=== PATIENT | female | born 1965 | race Caucasian/White ===

== ENCOUNTER → 2019-08-13 | Outpatient (CLI) | payer MEDICAID ==
--- NOTE | 2019-08-13 14:34 | Diagnostic Imaging Report ---
INDICATION: Left shoulder pain. TIME OF EXAM: 02:19 p.m. FINDINGS: Three views of the left shoulder were obtained. Glenohumeral and acromioclavicular alignment are normal. Acromiohumeral space is normal. There are degenerative changes with some spurring at the humeral head and neck junction. No fractures are seen. IMPRESSION: Degenerative changes. No acute bony abnormality is detected. Dictated by: Dictated on workstation # [id number]
== END ==
LOC: RAD FS 14:09
PROVIDERS: ATTEND Nurse Practitioner
DX: M19.012 Primary osteoarthritis, left shoulder (principal)
CPT/HCPCS: 73030

== ENCOUNTER → 2019-10-01 | Outpatient (CLI) | payer MEDICAID ==
--- NOTE | 2019-10-01 10:54 | Diagnostic Imaging Report ---
INDICATION: History of osteoarthritis. COMPARISON: 08/13/2019. FINDINGS: Three views of the left shoulder were obtained. There is no fracture, dislocation, or other acute bony abnormality identified. The soft tissues appear unremarkable. No radiopaque foreign bodies identified. The visualized portions of the left lung are clear. IMPRESSION: No acute fractures or dislocations of the left shoulder. Dictated by: Dictated on workstation # [id number]
== END ==
LOC: RAD FS 10:08
PROVIDERS: ATTEND Nurse Practitioner
DX: M19.012 Primary osteoarthritis, left shoulder (principal)
CPT/HCPCS: 73030

== ENCOUNTER 2019-10-07 12:39 | Outpatient (RCR) | payer MEDICAID ==
[2019-10-07 13:27] LABS: BASOPHILS % (AUTO) 1 % (0-10); EOSINOPHILS # (AUTO) 0.1 10^3/uL (0.0-0.3); EOSINOPHILS % (AUTO) 2 % (0-10); HEMATOCRIT 31 % (35-52); HEMOGLOBIN 9.7 G/DL (11.5-16.0); LYMPHOCYTES # (AUTO) 1.3 X 10^3 (1.0-4.0); LYMPHOCYTES % (AUTO) 26 % (12-44); MEAN CORPUSCULAR HEMOGLOBIN 26 PG (25-34); MEAN CORPUSCULAR HGB CONC 31 G/DL (32-36); MEAN CORPUSCULAR VOLUME 84 FL (80-99); MEAN PLATELET VOLUME 10.9 FL (7.4-10.4); MONOCYTES # (AUTO) 0.6 X 10^3 (0.0-1.0); MONOCYTES % (AUTO) 12 % (0-12); NEUTROPHILS % (AUTO) 60 % (42-75); PLATELET COUNT 109 10^3/uL (130-400)
[2019-10-07 13:45] LABS: ALANINE AMINOTRANSFERASE 33 U/L (0-55); ALBUMIN 3.7 GM/DL (3.2-4.5); ALKALINE PHOSPHATASE 79 U/L (40-136); BILIRUBIN,TOTAL 1.4 MG/DL (0.1-1.0); BUN/CREATININE RATIO 23; CALCIUM 8.8 MG/DL (8.5-10.1); CARBON DIOXIDE 21 MMOL/L (21-32); CHLORIDE 103 MMOL/L (98-107); CREATININE SERUM 0.79 MG/DL (0.60-1.30); GFR ESTIMATED > 60; GLUCOSE 124 MG/DL (70-105); POTASSIUM 3.6 MMOL/L (3.6-5.0); SODIUM 135 MMOL/L (135-145)
[2019-10-21] MEDS ORDERED: LISI10TA2 PO (15:46)
[2019-10-21] MEDS ORDERED: OMEP40CA27 PO (15:46)
[2019-10-21] MEDS ORDERED: METF-399 PO (15:46)
[2019-10-21] MEDS ORDERED: PAMI30VI8 SQ (15:46)
[2019-10-21] MEDS ORDERED: BUME2TAB7 PO (15:46)
[2019-10-21] MEDS ORDERED: RT-ALBUINH IH (15:46)
[2019-10-21] MEDS ORDERED: ARIP2TAB20 PO (15:46)
[2019-10-21] MEDS ORDERED: ACHD5005 PO (15:46)
[2019-10-21] MEDS ORDERED: GABA-486 PO (15:46)
[2019-10-21] MEDS ORDERED: TRAZ150T72 PO (15:46)
[2019-10-21] MEDS ORDERED: FAMO20TA3 PO (15:46)
[2019-10-21] MEDS ORDERED: EZET1TAB69 PO (15:46)
[2019-10-21] MEDS ORDERED: EXEN2PEN SQ (15:46)
[2019-10-21] MEDS ORDERED: ALPR0.5T7 PO (15:46)
[2019-10-21] MEDS ORDERED: CANA300T PO (15:46)
[2019-10-21] MEDS ORDERED: CYCL10TA9 PO (15:46)
[2019-10-21] MEDS ORDERED: POTA10TA36 PO (15:46)
[2019-11-16] MEDS ORDERED: FERR-84 PO (12:34)
[2019-11-16] MEDS ORDERED: POLY17PO6 PO (12:34)
[2019-11-16] MEDS ORDERED: DOCU100T2 PO (12:34)
[2019-11-16] MEDS ORDERED: SODI30SP2 NS (12:34)
[2019-11-16] MEDS ORDERED: PEG15DRO9 OP (12:34)
[2019-11-18] MEDS ORDERED: CEFD300C3 PO (10:40)
[2019-11-18] MEDS ORDERED: BTH10T PO (10:40)
== END 2020-01-05 | disposition home or self-care (01) ==
LOC: ONC 12:39
PROVIDERS: ATTEND Internal Medicine Hematology & Oncology
DX: D50.0 Iron deficiency anemia secondary to blood loss (chronic) (principal); E66.01 Morbid (severe) obesity due to excess calories; E11.9 Type 2 diabetes mellitus without complications; D69.6 Thrombocytopenia, unspecified; K76.0 Fatty (change of) liver, not elsewhere classified; E78.5 Hyperlipidemia, unspecified; I10 Essential (primary) hypertension; Z79.899 Other long term (current) drug therapy
CPT/HCPCS: 80053; 82728; 83540; 84443; 85025; G0463; 99214

== ENCOUNTER 2019-10-21 05:50 | Outpatient (RCR) | payer MEDICAID ==
[~2019-10-21] VITALS: Ht 154.9 cm; Wt 98.6 kg
[2019-10-21] MEDS ORDERED: EZET1TAB69 PO (15:46)
[2019-10-21] MEDS ORDERED: ALPR0.5T7 PO (15:46)
[2019-10-21] MEDS ORDERED: FAMO20TA3 PO (15:46)
[2019-10-21] MEDS ORDERED: GABA-486 PO (15:46)
[2019-10-21] MEDS ORDERED: EXEN2PEN SQ (15:46)
[2019-10-21] MEDS ORDERED: PAMI30VI8 SQ (15:46)
[2019-10-21] MEDS ORDERED: METF-399 PO (15:46)
[2019-10-21] MEDS ORDERED: CANA300T PO (15:46)
[2019-10-21] MEDS ORDERED: ARIP2TAB20 PO (15:46)
[2019-10-21] MEDS ORDERED: OMEP40CA27 PO (15:46)
[2019-10-21] MEDS ORDERED: RT-ALBUINH IH (15:46)
[2019-10-21] MEDS ORDERED: POTA10TA36 PO (15:46)
[2019-10-21] MEDS ORDERED: BUME2TAB7 PO (15:46)
[2019-10-21] MEDS ORDERED: LISI10TA2 PO (15:46)
[2019-10-21] MEDS ORDERED: CYCL10TA9 PO (15:46)
[2019-10-21] MEDS ORDERED: TRAZ150T72 PO (15:46)
[2019-10-21] MEDS ORDERED: ACHD5005 PO (15:46)
== END 2019-10-23 10:05 | disposition home or self-care (01) ==
LOC: PREOP 05:50 → EDSTATUS 12:15 → PREOP 10-23 10:05
PROVIDERS: ATTEND Surgery
DX: Z01.818 Encounter for other preprocedural examination (principal)

== ENCOUNTER 2019-10-28 10:56 | Day surgery (SDC) | payer MEDICAID ==
[~2019-10-28] VITALS: Ht 154.9 cm; Wt 98.6 kg
[~2019-10-28 10:56] MED LIST: ACHD5005 PO; ALPR0.5T7 PO; ARIP2TAB20 PO; BUME2TAB7 PO; CANA300T PO; CYCL10TA9 PO; EXEN2PEN SQ; EZET1TAB69 PO; FAMO20TA3 PO; GABA-486 PO; LISI10TA2 PO; METF-399 PO; OMEP40CA27 PO; PAMI30VI8 SQ; POTA10TA36 PO; RT-ALBUINH IH; TRAZ150T72 PO
[2019-10-28] MEDS ORDERED: LACTATED RINGERS 1,000 ML IV ONE (10:58)
[2019-10-28] MEDS ORDERED: LACTATED RINGERS 1,000 ML IV STA (11:06)
[2019-10-28 11:10] VITALS: BP 108/51
[2019-10-28] MEDS ORDERED: HURRICAINE EXT TUBE (BENZOCAINE) XX PRN (11:15)
--- NOTE | 2019-10-28 11:40 | Progress Note-Pre Operative ---
Pre-Operative Progress Note H&P Reviewed The H&P was reviewed, patient examined and no changes noted. Time Seen by Provider: 11:37 Date H&P Reviewed: Oct 28, 2019 Time H&P Reviewed: 11:37 Pre-Operative Diagnosis: Anemia, melena, Gastritis, screening colon DEBRA BRICEÑO DO Oct 28, 2019 11:40
[2019-10-28] MEDS ORDERED: PROPOFOL INJECTION 50 ML IV ONE (13:16)
[2019-10-28] MEDS ORDERED: HURRICAINE EXT TUBE (BENZOCAINE) ONE (13:41)
[2019-10-28 14:00] VITALS: BP 98/51
[2019-10-28 14:05] VITALS: BP 92/55
--- NOTE | 2019-10-28 14:09 | Anesthesia-General Post-Op ---
MAC Patient Condition Mental Status/LOC: Same as Preop Cardiovascular: Satisfactory Nausea/Vomiting: Absent Respiratory: Satisfactory Pain: Controlled Complications: Absent Post Op Complications Complications None Follow Up Care/Instructions Patient Instructions None needed. Anesthesiology Discharge Order Discharge Order Patient is doing well, no complaints, stable vital signs, no apparent adverse anesthesia problems. No complications reported per nursing. NICOLE MALDONADO CRNA Oct 28, 2019 14:09
[2019-10-28 14:10] VITALS: BP_SYST 100; BP_SYST 102; BP_DIAS 55; BP_DIAS 56
--- NOTE | 2019-10-28 14:19 | Progress Note-Post Operative ---
Post-Operative Progess Note Surgeon (s)/Crossword Puzzle Maker (s) Surgeon DEBRA BRICEÑO DO Crossword Puzzle Maker: RUBI AcostaII Pre-Operative Diagnosis Anemia, melena, Gastritis, screening colon Post-Operative Diagnosis Same plus Hiatal Hernia Colon polyps diverticula int hemorrhoids Procedure & Operative Findings Date of Procedure 10/28/19 Procedure Performed/Findings EGD with bx Colon with hot bx Anesthesia Type IV sedation by RAILROAD CARMAN Estimated Blood Loss Estimated blood loss (mL): scant Specimens/Packing Specimens Removed antral bx body of stomach x 2 GE jxn bx asc colon polyp rectal polyp DEBRA BRICEÑO DO Oct 28, 2019 14:19
--- NOTE | 2019-10-28 14:20 | Endoscopy Discharge Instruct ---
Endo Procedure/Findings Findings 1.: Hiatal Hernia, Gastritis 2.: Polyp 3.: Diverticulosis 4.: Internal Hemorrhoids Discharge Instructions - Activity: You might feel a little sleepy until tomorrow. This is due to the medicine you received to relax you. Until tomorrow, you should: NOT drive a car, operate machinery or power tools. NOT drink any alcoholic beverages. NOT make any important decisions or sign importortant papers. Do not return to work until tomorrow, unless otherwise instructed. Resume previous activities tomorrow. Diet: Start by taking liquids. If you tolerate liquids, advance to solid food. 1.: Colonscopy in 5 years, EGD in 3 years Notify Physician - If you experience excessive bleeding, unusual abdominal pain, fever, or chest pain, contact your doctor immediately. DEBRA BRICEÑO DO Oct 28, 2019 14:20
[2019-10-28 14:35] VITALS: BP 117/45
[2019-10-28 14:36] VITALS: BP 117/45
--- NOTE | 2019-10-29 04:04 | OPERATIVE REPORT ---
DATE OF SERVICE: PREOPERATIVE DIAGNOSES: Anemia, melena, colonoscopy screening. POSTOPERATIVE DIAGNOSES: Gastritis, hiatal hernia, colon polyps, diverticula, internal hemorrhoids. PROCEDURES: 1. EGD with biopsy. 2. Colonoscopy with hot biopsy. SURGEON: Sergio Mead DO. ADVERTISING REP: KEVIN Haas. ANESTHESIA: IV sedation by the CANE BURNER. SPECIMEN: Antral biopsy, body of stomach biopsy x2, GE junction biopsy, ascending colon polyp x1 and rectal polyp x1. BLOOD LOSS: Scant. FLUIDS: Per anesthesia. POSTOPERATIVE CONDITION: Stable. INDICATION FOR PROCEDURE: The patient is a 54-year-old female who has had some anemia, possibly a melena, we thought it was upper GI source and she has never had a colonoscopy, needs one for screening. DESCRIPTION OF PROCEDURE: The patient had some gastritis and hiatal hernia and then in the colon, she had two flat polyps along with a lot of diverticula and some internal hemorrhoids. PROCEDURE NOTE: After informed consent was obtained, the patient was brought to the endoscopy suite, placed in bed in left lateral decubitus position. She was administered IV sedation by the CANE BURNER who then monitored her vitals the entire time, heart rate, blood pressure and pulse ox and the scope was inserted first started with the EGD, placing scope down the mouth through the esophagus into the stomach, pushed towards the antrum, noted some gastritis, took a picture, pushed into the duodenum. Duodenum looked fine. Pulled back, did a biopsy of the antrum and then retroflexed the scope, did a biopsy from the body of stomach, looked okay, may have been an ulcer or some bleeding area, did a biopsy of this, then pulled the scope into the GE junction, did a biopsy of the GE junction, pushed the scope back into the stomach, suctioned all the air out and then pulled the scope up the esophagus and out the mouth. Switched camera, switched gloves, went down below, started the colonoscopy, pushed the scope in all the way to 150 cm, able to get all the way to cecum, took a picture of appendiceal orifice, noted the ileocecal valve and then slowly withdrew the scope insufflating to look circumferentially at the bronson looking the cecum, up the ascending colon. In the ascending colon, soft, flat polyp, I elected to do a hot biopsy of this and then continued up to the hepatic flexure, down the transverse colon, the splenic flexure, into the descending colon down in the sigmoid and finally into the rectum, saw another polyp in the rectum, did another hot biopsy of this and then retroflexed the scope in the rectal vault, saw some minimal internal hemorrhoids, took a picture throughout the descending colon and sigmoid colon, saw multiple large diverticula, took pictures of these. Scope was removed. The patient tolerated the procedure, recovered in endoscopy suite. Job ID: [id number] DocumentID: [id number] Dictated Date: 10/28/2019 16:31:20 Weaving Loom Operator Date: 10/29/2019 04:03:10 Dictated By: SERGIO MEAD DO
== END 2019-10-28 14:38 | disposition home or self-care (01) ==
LOC: ENDO 10:56
PROVIDERS: ATTEND Surgery
DX: D12.2 Benign neoplasm of ascending colon (principal); K62.1 Rectal polyp; K31.7 Polyp of stomach and duodenum; K29.50 Unspecified chronic gastritis without bleeding; K31.9 Disease of stomach and duodenum, unspecified; K44.9 Diaphragmatic hernia without obstruction or gangrene; K57.30 Diverticulosis of large intestine without perforation or abscess without bleeding; K21.9 Gastro-esophageal reflux disease without esophagitis; K64.8 Other hemorrhoids; D50.9 Iron deficiency anemia, unspecified; F17.210 Nicotine dependence, cigarettes, uncomplicated; I10 Essential (primary) hypertension; E78.5 Hyperlipidemia, unspecified; E11.9 Type 2 diabetes mellitus without complications; G40.909 Epilepsy, unspecified, not intractable, without status epilepticus; J45.909 Unspecified asthma, uncomplicated; M19.91 Primary osteoarthritis, unspecified site; F41.9 Anxiety disorder, unspecified; E66.9 Obesity, unspecified; Z68.41 Body mass index [BMI] 40.0-44.9, adult; Z87.19 Personal history of other diseases of the digestive system; Z79.84 Long term (current) use of oral hypoglycemic drugs; Z79.899 Other long term (current) drug therapy; Z88.2 Allergy status to sulfonamides
CPT/HCPCS: 82962; 88305

== ENCOUNTER 2019-11-20 16:46 | Emergency (ER) | payer MEDICAID ==
[~2019-11-20] VITALS: Ht 152.4 cm; Wt 87.0 kg
--- NOTE | 2019-11-20 17:00 | ED General ---
General Stated Complaint: SEPSIS Source of Information: Patient Exam Limitations: No Limitations History of Present Illness Date Seen by Provider: Nov 20, 2019 Time Seen by Provider: 16:55 Initial Comments 54-year-old female presents due to abnormal labs. Patient was recently hospitalized and had labs rechecked today. Patient was sent to the ER because they were concerned she might be "septic" patient was admitted for a urinary tract infection and retention. Patient states that she thinks she to allow better and feels great. Patient is found to have an elevated lactic but otherwise urine was normal, no elevated white blood cell count. Patient denies any fevers chills nausea vomiting other systemic complaints. Allergies and Home Medications Allergies Coded Allergies: sulfamethoxazole (Verified Allergy, Unknown, Nausea AND VOMITING, 10/21/19) trimethoprim (Verified Allergy, Unknown, Nausea AND VOMITING, 10/21/19) varenicline (Verified Allergy, Unknown, SUICIDE THOUGHTS, 10/21/19) Home Medications Albuterol Sulfate 1 Puff Puff, 2 PUFF IH Q4H PRN for SHORTNESS OF BREATH, (Reported) Alprazolam 0.5 Mg Tablet, 0.5 MG PO TID PRN for ANXIETY, (Reported) Aripiprazole 2 Mg Tablet, 2 MG PO DAILY PRN for MOOD, (Reported) Bethanechol Chloride 10 Mg Tablet, 10 MG PO BID Prescribed by: URBANO CORTES on 11/18/19 1040 Bumetanide 2 Mg Tablet, 2 MG PO DAILY, (Reported) Canagliflozin 300 Mg Tablet, 300 MG PO DAILY, (Reported) Cefdinir 300 Mg Capsule, 300 MG PO BID Prescribed by: URBANO CORTES on 11/18/19 1040 Cyclobenzaprine HCl 10 Mg Tablet, 10 MG PO BID PRN for MUSCLE SPASMS, (Reported) Docusate Sodium 100 Mg Tablet, 100 MG PO BID PRN for CONSTIPATION-1ST LINE, (Reported) Ezetimibe/Simvastatin 1 Each Tablet, 1 EACH PO DAILY, (Reported) Famotidine 20 Mg Tablet, 20-40 MG PO HS, (Reported) TAKES 1-2 (20MG) TAB Ferrous Sulfate 325 Mg Tablet, 325 MG PO DAILY, (Reported) Gabapentin 100 Mg Capsule, 100 MG PO TID PRN for PAIN-BREAKTHROUGH, (Reported) Hydrocodone/Acetaminophen 1 Each Tablet, 1 EACH PO TID PRN for PAIN-MODERATE (5- 7), (Reported) Lisinopril 10 Mg Tablet, 10 MG PO DAILY, (Reported) Metformin HCl 1,000 Mg Tablet, 1,000 MG PO BID, (Reported) Omeprazole 40 Mg Capsule.dr, 40 MG PO BID, (Reported) Peg 400/Hypromellose/Glycerin 15 Ml Drops, 2 DROPS OP PRN PRN for DRY EYES, (Reported) Polyethylene Glycol 3350 17 Gm Powd.pack, 17 GM PO DAILY PRN for CONSTIPATION- 2ND LINE, (Reported) Potassium Chloride 10 Meq Tab.er.prt, 10 MEQ PO DAILY, (Reported) Sodium Chloride 30 Ml [place], 2 SPRAYS NS PRN PRN for DRY NOSE, (Reported) Trazodone HCl 150 Mg Tablet, 150 MG PO HS, (Reported) Patient Home Medication List Home Medication List Reviewed: Yes Review of Systems Review of Systems Constitutional: No chills, No fever EENTM: no symptoms reported Respiratory: no symptoms reported; No cough, No short of breath Cardiovascular: no symptoms reported; No chest pain, No palpitations Gastrointestinal: no symptoms reported Genitourinary: no symptoms reported Musculoskeletal: no symptoms reported Skin: no symptoms reported Psychiatric/Neurological: No Symptoms Reported Past Tbmbrso-Mjywlq-[id number] Hx Past Med/Social Hx: Reviewed Nursing Past Med/Soc Hx Patient Social History Type Used: Cigarettes Recent Foreign Travel: No Contact w/Someone Who Travel: No Recent Hopitalizations: No Immunizations Up To Date PED Vaccines UTD: No Seasonal Allergies Seasonal Allergies: Yes Past Medical History Surgeries: Yes Gallbladder, Hysterectomy Respiratory: Yes Asthma Cardiac: No Neurological: Yes Seizure Disorder Genitourinary: No Gastrointestinal: Yes Gastroesophageal Reflux Musculoskeletal: Yes Arthritis Endocrine: Yes Diabetes, Insulin dep HEENT: Yes (no teeth) Cancer: No Psychosocial: Yes Anxiety Integumentary: No Blood Disorders: Yes (anemia) Family Medical History Heart Disease, Diabetes, Hypertension Physical Exam Vital Signs Vital Signs - First Documented 11/20/19 16:57 Temp 36.8 Pulse 107 Resp 16 B/P (MAP) 131/60 (83) Pulse Ox 97 O2 Delivery Room Air Capillary Refill : Height, Weight, BMI Height: '" Weight: lbs. oz. kg; 32.28 BMI Method: General Appearance: No Apparent Distress, WD/WN Respiratory: Lungs Clear, Normal Breath Sounds, Accessory Muscle Use Cardiovascular: Regular Rate, Rhythm, No Edema Gastrointestinal: Non Tender, Soft Back: Normal Inspection Extremity: Normal Capillary Refill, Normal Inspection Neurologic/Psychiatric: Alert, Oriented x3, No Motor/Sensory Deficits, Normal Mood/Affect, powder coat painter II-XII Norm as Tested Skin: Normal Color, Warm/Dry Focused Exam Lactate Level 11/20/19 18:45: Lactic Acid Level 3.09*H Lactic Acid Level Laboratory Tests Test 11/20/19 18:45 Lactic Acid Level 3.09 MMOL/L (0.50-2.00) *H Progress/Results/Core Measures Suspected Sepsis SIRS Temperature: Pulse: Respiratory Rate: Laboratory Tests 11/20/19 17:05: White Blood Count 5.7 Blood Pressure / Mean: 11/20/19 18:45: Lactic Acid Level 3.09*H Laboratory Tests 11/20/19 17:05: Creatinine 0.68, Platelet Count 163 Results/Orders Lab Results Laboratory Tests Test 11/20/19 17:05 11/20/19 18:45 Range/Units White Blood Count 5.7 4.3-11.0 10^3/uL Red Blood Count 3.87 L 4.35-5.85 10^6/uL Hemoglobin 10.4 L 11.5-16.0 G/DL Hematocrit 34 L 35-52 % Mean Corpuscular Volume 87 80-99 FL Mean Corpuscular Hemoglobin 27 25-34 PG Mean Corpuscular Hemoglobin Concent 31 L 32-36 G/DL Red Cell Distribution Width 20.2 H 10.0-14.5 % Platelet Count 163 130-400 10^3/uL Mean Platelet Volume 11.0 H 7.4-10.4 FL Immature Granulocyte % (Auto) 0 % Neutrophils (%) (Auto) 59 42-75 % Lymphocytes (%) (Auto) 26 12-44 % Monocytes (%) (Auto) 12 0-12 % Eosinophils (%) (Auto) 2 0-10 % Basophils (%) (Auto) 1 0-10 % Neutrophils # (Auto) 3.4 1.8-7.8 X 10^3 Lymphocytes # (Auto) 1.5 1.0-4.0 X 10^3 Monocytes # (Auto) 0.7 0.0-1.0 X 10^3 Eosinophils # (Auto) 0.1 0.0-0.3 10^3/uL Basophils # (Auto) 0.0 0.0-0.1 10^3/uL Immature Granulocyte # (Auto) 0.0 0.0-0.1 10^3/uL Sodium Level 140 135-145 MMOL/L Potassium Level 3.6 3.6-5.0 MMOL/L Chloride Level 104 98-107 MMOL/L Carbon Dioxide Level 19 L 21-32 MMOL/L Anion Gap 17 H 5-14 MMOL/L Blood Urea Nitrogen 15 7-18 MG/DL Creatinine 0.68 0.60-1.30 MG/DL Estimat Glomerular Filtration Rate > 60 BUN/Creatinine Ratio 22 Glucose Level 123 H 70-105 MG/DL Calcium Level 9.2 8.5-10.1 MG/DL Lactic Acid Level 3.09 *H 0.50-2.00 MMOL/L My Orders Orders - DEO MCPHERSON DO Ns Iv 1000 Ml (Sodium Chloride 0.9%) (11/20/19 17:22) Ed Iv/Invasive Line Start (11/20/19 17:22) Basic Metabolic Panel (11/20/19 17:55) Cbc With Automated Diff (11/20/19 17:55) Lactic Acid Analyzer (11/20/19 17:55) Vital Signs/I&O 11/20/19 16:57 Temp 36.8 Pulse 107 Resp 16 B/P (MAP) 131/60 (83) Pulse Ox 97 O2 Delivery Room Air Capillary Refill : Progress Note : Time: 19:14 Progress Note Patient reports that she feels fine and has no symptoms. Her lactic acid has improved from in the 4s down into the threes. Labs look better than earlier today. Patient does not want to be admitted and would like to go home. Patient will be discharged home and she should follow Dr. Delgado next week for continuation of care return to the ER with any concerns. Departure Impression Primary Impression: General medical exam Disposition: 01 HOME, SELF-CARE Condition: Stable Departure-Patient Inst. Referrals: ANTON DELGADO MD (PCP/Family) Primary Care Physician Add. Discharge Instructions: Follow up with Dr Delgado next week for continuation of care DEO MCPHERSON DO Nov 20, 2019 17:00
[2019-11-20] MEDS ORDERED: NS IV 1000 ML 1,000 ML IV STA (17:22)
[2019-11-20 18:03] LABS: WHITE BLOOD COUNT 5.7 10^3/uL (4.3-11.0)
[2019-11-20 18:04] LABS: BASOPHILS % (AUTO) 1 % (0-10); EOSINOPHILS % (AUTO) 2 % (0-10); HEMATOCRIT 34 % (35-52); HEMOGLOBIN 10.4 G/DL (11.5-16.0); LYMPHOCYTES % (AUTO) 26 % (12-44); MEAN CORPUSCULAR HEMOGLOBIN 27 PG (25-34); MEAN CORPUSCULAR HGB CONC 31 G/DL (32-36); MEAN CORPUSCULAR VOLUME 87 FL (80-99); MONOCYTES % (AUTO) 12 % (0-12); NEUTROPHILS % (AUTO) 59 % (42-75); PLATELET COUNT 163 10^3/uL (130-400)
[2019-11-20 18:05] LABS: EOSINOPHILS # (AUTO) 0.1 10^3/uL (0.0-0.3); LYMPHOCYTES # (AUTO) 1.5 X 10^3 (1.0-4.0); MONOCYTES # (AUTO) 0.7 X 10^3 (0.0-1.0); NEUTROPHILS # (AUTO) 3.4 X 10^3 (1.8-7.8)
[2019-11-20 18:23] LABS: BUN/CREATININE RATIO 22; CALCIUM 9.2 MG/DL (8.5-10.1); CARBON DIOXIDE 19 MMOL/L (21-32); CHLORIDE 104 MMOL/L (98-107); CREATININE SERUM 0.68 MG/DL (0.60-1.30); GFR ESTIMATED > 60; GLUCOSE 123 MG/DL (70-105); POTASSIUM 3.6 MMOL/L (3.6-5.0); SODIUM 140 MMOL/L (135-145)
[2019-11-20 19:15] VITALS: BP 126/62
== END 2019-11-20 19:15 | disposition home or self-care (01) ==
LOC: EDUNIT# 16:46 → ER FS 16:47
DX: Z00.00 Encounter for general adult medical examination without abnormal findings (principal); K21.9 Gastro-esophageal reflux disease without esophagitis; F41.9 Anxiety disorder, unspecified; E11.9 Type 2 diabetes mellitus without complications; J45.909 Unspecified asthma, uncomplicated; G40.909 Epilepsy, unspecified, not intractable, without status epilepticus; Z82.49 Family history of ischemic heart disease and other diseases of the circulatory system; Z83.3 Family history of diabetes mellitus; Z79.84 Long term (current) use of oral hypoglycemic drugs; Z88.2 Allergy status to sulfonamides; Z88.1 Allergy status to other antibiotic agents; Z88.8 Allergy status to other drugs, medicaments and biological substances
CPT/HCPCS: 36415; 80048; 83605; 85025; 99281

== ENCOUNTER → 2019-11-20 | Outpatient (CLI) | payer MEDICAID ==
[~2019-11-20] MED LIST changes: +BTH10T PO; +CEFD300C3 PO; +DOCU100T2 PO; +FERR-84 PO; +PEG15DRO9 OP; +POLY17PO6 PO; +SODI30SP2 NS
[2019-11-20 16:24] LABS: HEMATOCRIT 35 % (35-52); HEMOGLOBIN 10.7 G/DL (11.5-16.0); MEAN CORPUSCULAR HEMOGLOBIN 27 PG (25-34); MEAN CORPUSCULAR HGB CONC 31 G/DL (32-36); MEAN CORPUSCULAR VOLUME 87 FL (80-99); MEAN PLATELET VOLUME 10.8 FL (7.4-10.4); PLATELET COUNT 165 10^3/uL (130-400); WHITE BLOOD COUNT 5.8 10^3/uL (4.3-11.0)
[2019-11-20 16:25] LABS: BASOPHILS % (AUTO) 1 % (0-10); EOSINOPHILS # (AUTO) 0.1 10^3/uL (0.0-0.3); EOSINOPHILS % (AUTO) 2 % (0-10); LYMPHOCYTES # (AUTO) 1.4 X 10^3 (1.0-4.0); LYMPHOCYTES % (AUTO) 24 % (12-44); MONOCYTES # (AUTO) 0.7 X 10^3 (0.0-1.0); MONOCYTES % (AUTO) 12 % (0-12); NEUTROPHILS # (AUTO) 3.6 X 10^3 (1.8-7.8); NEUTROPHILS % (AUTO) 62 % (42-75)
[2019-11-20 16:38] LABS: ALANINE AMINOTRANSFERASE 37 U/L (0-55); ALKALINE PHOSPHATASE 93 U/L (40-136); BILIRUBIN,TOTAL 1.6 MG/DL (0.1-1.0); BUN/CREATININE RATIO 21; CALCIUM 9.3 MG/DL (8.5-10.1); CARBON DIOXIDE 19 MMOL/L (21-32); CHLORIDE 102 MMOL/L (98-107); CREATININE SERUM 0.67 MG/DL (0.60-1.30); GFR ESTIMATED > 60; GLUCOSE 124 MG/DL (70-105); POTASSIUM 3.5 MMOL/L (3.6-5.0); SODIUM 139 MMOL/L (135-145); TOTAL PROTEIN 7.6 GM/DL (6.4-8.2)
[2019-11-20 16:48] LABS: BACTERIA,URINE NEGATIVE /HPF; BILIRUBIN,URINE NEGATIVE (NEGATIVE); CLARITY,URINE CLEAR; COLOR,URINE PALE YELLOW; GLUCOSE, URINE (UA) 3+ (NEGATIVE); HYALINE CASTS, URINE RARE /LPF; KETONES,URINE NEGATIVE (NEGATIVE); LEUKOCYTE ESTERASE ,URINE NEGATIVE (NEGATIVE); NITRITE,URINE NEGATIVE (NEGATIVE); PH,URINE 5.5 (5-9); PROTEIN,URINE NEGATIVE (NEGATIVE); RBC,URINE RARE /HPF; SQUAMOUS EPITHELIAL CELL,UR 0-2 /HPF; WBC,URINE RARE /HPF
[2019-11-20 16:49] LABS: YEAST,URINE FEW /HPF
[2019-11-21 15:16] LABS: AMMONIA 71 UMOL/L (11-32)
== END ==
LOC: LAB FS 15:57
PROVIDERS: ATTEND Family Medicine
DX: R41.82 Altered mental status, unspecified (principal)
CPT/HCPCS: 36415; 80053; 81000; 82140; 83605; 85025

== ENCOUNTER 2019-12-04 09:32 | Emergency (ER) | payer MEDICAID ==
--- NOTE | 2019-12-04 09:37 | NUR ---
Bladder scan performed immediately for distention of abd. Scanner reveals >999ml.
--- NOTE | 2019-12-04 09:40 | NUR ---
Pt has had clothing removed with assist of nurses and Dr caballero and placed in gown. 16 Fr Mayen placed per Mohini RN with immediate returns clear yellow filling to 1000 ml immediately.
[2019-12-04] MEDS ORDERED: NS IV 1000 ML 1,000 ML IV STA (09:56)
[2019-12-04 10:07] LABS: BACTERIA,URINE NEGATIVE /HPF; BILIRUBIN,URINE NEGATIVE (NEGATIVE); CLARITY,URINE CLEAR; COLOR,URINE YELLOW; GLUCOSE, URINE (UA) 3+ (NEGATIVE); KETONES,URINE TRACE (NEGATIVE); LEUKOCYTE ESTERASE ,URINE NEGATIVE (NEGATIVE); NITRITE,URINE NEGATIVE (NEGATIVE); PH,URINE 6.5 (5-9); PROTEIN,URINE NEGATIVE (NEGATIVE); SQUAMOUS EPITHELIAL CELL,UR 0-2 /HPF; WBC,URINE RARE /HPF
[2019-12-04 10:08] LABS: HYALINE CASTS, URINE RARE /LPF
--- NOTE | 2019-12-04 10:24 | ED General ---
General Stated Complaint: ABD DISTENSION Source of Information: Patient, EMS, Old Records Exam Limitations: Other (altered mental status) History of Present Illness Date Seen by Provider: Dec 04, 2019 Time Seen by Provider: 09:32 Initial Comments 54-year-old female presenting by EMS from home. She reportedly had not urinated 2 days and had a distended abdomen. Her mental status was decreased from her baseline. She has been having issues with mental status changes over the last several weeks. When EMS picked her up there were no reports of any cough, fever, shortness of breath. Family did report that she had similar symptoms earlier this month and was admitted to the hospital with UTI symptoms. She provides minimal information on her. She primarily cries out "Help me" and repeats "Please, please." She does have a distended abdomen. She also repeatedly cries out profanities. She will inconsistently follow some commands. Allergies and Home Medications Allergies Coded Allergies: sulfamethoxazole (Verified Allergy, Unknown, Nausea AND VOMITING, 10/21/19) trimethoprim (Verified Allergy, Unknown, Nausea AND VOMITING, 10/21/19) varenicline (Verified Allergy, Unknown, SUICIDE THOUGHTS, 10/21/19) Home Medications Albuterol Sulfate 1 Puff Puff, 2 PUFF IH Q4H PRN for SHORTNESS OF BREATH, (Reported) Alprazolam 0.5 Mg Tablet, 0.5 MG PO TID PRN for ANXIETY, (Reported) Aripiprazole 2 Mg Tablet, 2 MG PO DAILY PRN for MOOD, (Reported) Bethanechol Chloride 10 Mg Tablet, 10 MG PO BID Prescribed by: URBANO CORTES on 11/18/19 1040 Bumetanide 2 Mg Tablet, 2 MG PO DAILY, (Reported) Canagliflozin 300 Mg Tablet, 300 MG PO DAILY, (Reported) Cefdinir 300 Mg Capsule, 300 MG PO BID Prescribed by: URBANO CORTES on 11/18/19 1040 Cyclobenzaprine HCl 10 Mg Tablet, 10 MG PO BID PRN for MUSCLE SPASMS, (Reported) Docusate Sodium 100 Mg Tablet, 100 MG PO BID PRN for CONSTIPATION-1ST LINE, (Reported) Ezetimibe/Simvastatin 1 Each Tablet, 1 EACH PO DAILY, (Reported) Famotidine 20 Mg Tablet, 20-40 MG PO HS, (Reported) TAKES 1-2 (20MG) TAB Ferrous Sulfate 325 Mg Tablet, 325 MG PO DAILY, (Reported) Gabapentin 100 Mg Capsule, 100 MG PO TID PRN for PAIN-BREAKTHROUGH, (Reported) Hydrocodone/Acetaminophen 1 Each Tablet, 1 EACH PO TID PRN for PAIN-MODERATE (5- 7), (Reported) Lisinopril 10 Mg Tablet, 10 MG PO DAILY, (Reported) Metformin HCl 1,000 Mg Tablet, 1,000 MG PO BID, (Reported) Omeprazole 40 Mg Capsule.dr, 40 MG PO BID, (Reported) Peg 400/Hypromellose/Glycerin 15 Ml Drops, 2 DROPS OP PRN PRN for DRY EYES, (Rep orted) Polyethylene Glycol 3350 17 Gm Powd.pack, 17 GM PO DAILY PRN for CONSTIPATION- 2ND LINE, (Reported) Potassium Chloride 10 Meq Tab.er.prt, 10 MEQ PO DAILY, (Reported) Sodium Chloride 30 Ml [place], 2 SPRAYS NS PRN PRN for DRY NOSE, (Reported) Trazodone HCl 150 Mg Tablet, 150 MG PO HS, (Reported) Patient Home Medication List Home Medication List Reviewed: Yes Review of Systems Review of Systems Constitutional: see HPI; No fever (per family report to EMS) Respiratory: see HPI Gastrointestinal: see HPI (abdominal distention) Genitourinary: see HPI, decreased output (reportedly no urine output for 2 days per family report to EMS), other (urinary retention with more than 999 mL on bladder scan) : No (hysterectomy) Unable to assess full ROS due to altered mental status and pt unable to answer questions Past Qbavgux-Anasas-Yamzgy Hx Past Med/Social Hx: Reviewed Nursing Past Med/Soc Hx Patient Social History Type Used: Cigarettes Former Smoker, Quit: Nov 15, 2019 2nd Hand Smoke Exposure: No Recent Hopitalizations: No Immunizations Up To Date PED Vaccines UTD: No Seasonal Allergies Seasonal Allergies: Yes Past Medical History Surgeries: Yes Gallbladder, Hysterectomy Respiratory: Yes Asthma Cardiac: No Neurological: Yes Seizure Disorder Genitourinary: No Gastrointestinal: Yes Gastroesophageal Reflux Musculoskeletal: Yes Arthritis Endocrine: Yes Diabetes, Insulin dep HEENT: Yes (no teeth) Cancer: No Psychosocial: Yes Anxiety Integumentary: No Blood Disorders: Yes (anemia) Family Medical History Heart Disease, Diabetes, Hypertension Physical Exam Vital Signs Vital Signs - First Documented 12/04/19 09:35 Temp 36.4 Pulse 109 Resp 15 B/P (MAP) 131/64 (86) Pulse Ox 98 O2 Delivery Room Air Capillary Refill : Height, Weight, BMI Height: '" Weight: lbs. oz. kg; 37.00 BMI Method: General Appearance: WD/WN, Chronically ill, Moderate Distress, Obese HEENT: PERRL/EOMI, Pharynx Normal, Moist Mucous Membranes; No Pharyngeal Erythema, No Photophobia Neck: Full Range of Motion, Non Tender, Supple Respiratory: Chest Non Tender, Lungs Clear, Normal Breath Sounds, No Accessory Muscle Use, No Respiratory Distress Cardiovascular: Regular Rate, Rhythm, Normal Peripheral Pulses, Systolic Murmur (3/6 TED) Gastrointestinal: Normal Bowel Sounds, No Pulsatile Mass, Soft, Distended; No Rebound; Tenderness (says "Oww" when palpating her abdomen, especially in the suprapubic area) Genital/Rectal: Normal Genital Exam Extremity: Normal Capillary Refill, Normal Range of Motion, No Pedal Edema Neurologic/Psychiatric: Alert; No Oriented x3 (not answering any orientation questions) Skin: Normal Color, Warm/Dry Focused Exam Lactate Level 12/04/19 10:25: Lactic Acid Level 2.25*H 12/04/19 12:31: Lactic Acid Level 1.59 Lactic Acid Level Laboratory Tests Test 12/04/19 12:31 Lactic Acid Level 1.59 MMOL/L (0.50-2.00) Progress/Results/Core Measures Suspected Sepsis SIRS Temperature: Pulse: Respiratory Rate: Laboratory Tests 12/04/19 10:25: White Blood Count 7.0 Blood Pressure / Mean: 12/04/19 10:25: Lactic Acid Level 2.25*H 12/04/19 12:31: Lactic Acid Level 1.59 Laboratory Tests 12/04/19 10:25: Creatinine 0.83, Platelet Count 122L, Total Bilirubin 2.1H Results/Orders Lab Results Laboratory Tests Test 12/04/19 09:40 12/04/19 10:25 12/04/19 12:31 Range/Units Urine Color YELLOW Urine Clarity CLEAR Urine pH 6.5 5-9 Urine Specific [place] 1.015 L 1.016-1.022 Urine Protein NEGATIVE NEGATIVE Urine Glucose (UA) 3+ H NEGATIVE Urine Ketones TRACE H NEGATIVE Urine Nitrite NEGATIVE NEGATIVE Urine Bilirubin NEGATIVE NEGATIVE Urine Urobilinogen 2.0 < = 1.0 MG/DL Urine Leukocyte Esterase NEGATIVE NEGATIVE Urine RBC (Auto) NEGATIVE NEGATIVE Urine RBC NONE /HPF Urine WBC RARE /HPF Urine Squamous Epithelial Cells 0-2 /HPF Urine Crystals NONE /LPF Urine Calcium Oxalate Crystals /LPF Urine Bacteria NEGATIVE /HPF Urine Casts PRESENT /LPF Urine Hyaline Casts RARE /LPF Urine Mucus NEGATIVE /LPF Urine Culture Indicated NO Urine Opiates Screen POSITIVE H NEGATIVE Urine Oxycodone Screen NEGATIVE NEGATIVE Urine Methadone Screen NEGATIVE NEGATIVE Urine Propoxyphene Screen NEGATIVE NEGATIVE Urine Barbiturates Screen NEGATIVE NEGATIVE Ur Tricyclic Antidepressants Screen POSITIVE H NEGATIVE Urine Phencyclidine Screen NEGATIVE NEGATIVE Urine Amphetamines Screen NEGATIVE NEGATIVE Urine Methamphetamines Screen NEGATIVE NEGATIVE Urine Benzodiazepines Screen NEGATIVE NEGATIVE Urine Cocaine Screen NEGATIVE NEGATIVE Urine Cannabinoids Screen POSITIVE H NEGATIVE White Blood Count 7.0 4.3-11.0 10^3/uL Red Blood Count 3.99 L 4.35-5.85 10^6/uL Hemoglobin 10.3 L 11.5-16.0 G/DL Hematocrit 34 L 35-52 % Mean Corpuscular Volume 84 80-99 FL Mean Corpuscular Hemoglobin 26 25-34 PG Mean Corpuscular Hemoglobin Concent 31 L 32-36 G/DL Red Cell Distribution Width 19.3 H 10.0-14.5 % Platelet Count 122 L 130-400 10^3/uL Mean Platelet Volume 10.7 H 7.4-10.4 FL Immature Granulocyte % (Auto) 0 % Neutrophils (%) (Auto) 70 42-75 % Lymphocytes (%) (Auto) 20 12-44 % Monocytes (%) (Auto) 8 0-12 % Eosinophils (%) (Auto) 2 0-10 % Basophils (%) (Auto) 0 0-10 % Neutrophils # (Auto) 4.9 1.8-7.8 X 10^3 Lymphocytes # (Auto) 1.4 1.0-4.0 X 10^3 Monocytes # (Auto) 0.6 0.0-1.0 X 10^3 Eosinophils # (Auto) 0.1 0.0-0.3 10^3/uL Basophils # (Auto) 0.0 0.0-0.1 10^3/uL Immature Granulocyte # (Auto) 0.0 0.0-0.1 10^3/uL Sodium Level 139 135-145 MMOL/L Potassium Level 4.0 3.6-5.0 MMOL/L Chloride Level 102 98-107 MMOL/L Carbon Dioxide Level 19 L 21-32 MMOL/L Anion Gap 18 H 5-14 MMOL/L Blood Urea Nitrogen 24 H 7-18 MG/DL Creatinine 0.83 0.60-1.30 MG/DL Estimat Glomerular Filtration Rate > 60 BUN/Creatinine Ratio 29 Glucose Level 118 H 70-105 MG/DL Lactic Acid Level 2.25 *H 1.59 0.50-2.00 MMOL/L Calcium Level 9.7 8.5-10.1 MG/DL Corrected Calcium 9.7 8.5-10.1 MG/DL Magnesium Level 2.1 1.6-2.4 MG/DL Total Bilirubin 2.1 H 0.1-1.0 MG/DL Aspartate Amino Transf (AST/SGOT) 37 H 5-34 U/L Alanine Aminotransferase (ALT/SGPT) 44 0-55 U/L Alkaline Phosphatase 77 40-136 U/L Troponin I < 0.30 <0.30 NG/ML Pro-B-Type Natriuretic Peptide 63.1 <75.0 PG/ML Total Protein 7.1 6.4-8.2 GM/DL Albumin 4.0 3.2-4.5 GM/DL Lipase 63 8-78 U/L Serum Alcohol < 10 <10 MG/DL My Orders Orders - GARETH DAMON MD Comprehensive Metabolic Panel (12/04/19:) Lipase (12/04/19:51) Ua Culture If Indicated (12/04/19:) Ed Iv/Invasive Line Start (12/04/19:) Cbc With Automated Diff (12/04/19) Ct Abdomen/Pelvis Wo (12/04/19) Bladder Scan (12/04/19:) Ekg Tracing (12/04/19) Monitor-Rhythm Ecg Trace Only (12/04/19) Magnesium (12/04/19) Mayen Cath (12/04/19:) Blood Culture (12/04/19:) Lactic Acid Analyzer (12/04/19:) Troponin I Fs (12/04/19:) Probnp Fs (12/04/19:) Ct Head Wo (10/28/20 09:51) Chest 1 View Ap/Pa Only (12/04/19 09:51) Ns Iv 1000 Ml (Sodium Chloride 0.9%) (12/04/19 09:56) Drug Screen Stat (Urine) (12/04/19 10:03) Alcohol (12/04/19 10:03) Vital Signs/I&O 12/04/19 09:35 Temp 36.4 Pulse 109 Resp 15 B/P (MAP) 131/64 (86) Pulse Ox 98 O2 Delivery Room Air Capillary Refill : Progress Note #1: Progress Note Presentation is very similar to notes from November 14 ED visit. From review of the hospital notes and visit at that time her mentation seemed to clear as the urinary retention was resolved from the Mayen catheter. She was presumptively treated with Rocephin for UTI and covered with Levaquin for possible respiratory illness. Mayen catheter placed here and over 1,000 mL drained immediately. obtain labs with cultures and lactic acid and cardiac testing. Obtain CT scan of head to look for possible stroke or bleeding, CT abdomen/pelvis to evaluate distention and retention and look to see if there is another source for her distention and altered mental status and retention. Perform the CT scans without contrast since she has hx of renal insufficiency and with her recurrent retention she possibly has continued insufficiency or failure. will see what labs show. Progress Note #2: Progress Note UA does not show signs of infection and has no bacteria. UDS positive for Opiates, TCA, THC. CXR clear without infection or infiltrate. CBC shows chronic anemia with Hgb 10.3, WBC stable at 7 and mild thrombocytopenia. Chemistry with elevated Lactic acid of 2.25, Glucose mild elevation of 118, BUN 24 with Cr of 0.83, T Bili chronically elevated to 2.1, CO2 mildly low at 19 and Anion Gap slightly elevated to 18. Troponin negative at <0.[address] head without acute process and CT abd/pelvis shows 1 mm kidney stone with some obstruction in mid ureter Progress Note #3: Progress Note 1320 her mentation has improved some since she had catheter placed and she could answer a few questions now compared to arrival but still not completely normal. D/w Dr. Cortes and she accepted pt for admit to [facility] since she has cared for the patient with admit to [facility] on November 15, 2019 visit when she presented with same symptoms. Repeat lactate acid level down to 1.59 ECG Initial ECG Impression Date: Dec 04, 2019 Initial ECG Impression Time: 10:09 Initial ECG Rate: 96 Initial ECG Rhythm: Normal Sinus Initial ECG Comparisson: Unchanged Comment Normal sinus rhythm with heart rate of 96 bpm. The DE interval is 185 ms. There is a left bundle-branch block. QT interval 415 ms with a QTc interval 525 ms. There is no acute ST elevation. There is no apparent changes from previous tracing November 15, 2019. Diagnostic Imaging Diagonstic Imaging: CT Plain Films/CT/US/NM/MRI: abdomen, pelvis Comments [facility] [place], [place] NAME: SENG HODGES [facility] REC#: [id number] PT STATUS: REG ER : 1965 PHYSICIAN: GARETH DAMON MD ADMIT DATE: 12/04/19/ER FS Signed Date of Exam:12/04/19 CT ABDOMEN/PELVIS WO PROCEDURE: CT abdomen and pelvis without contrast. TECHNIQUE: Multiple contiguous axial images were obtained through the abdomen and pelvis without the use of intravenous contrast. Auto Exposure Controls were utilized during the CT exam to meet ALARA standards for radiation dose reduction. INDICATION: Altered mental status, oliguria Lung bases are clear. Liver appears normal. Gallbladder is surgically absent. Common duct is not dilated. Pancreas appears normal. The spleen is enlarged measuring 16 cm length. There is a 1 mm calculus in the right mid ureter causing mild hydronephrosis of the right kidney. Left kidney appears normal. There is calcific atherosclerosis of aorta but no aneurysm. Adrenal glands are normal. There is an umbilical hernia containing fat. The appendix is normal. Small bowel is unremarkable. There is a large amount stool in the colon. There are some scattered colonic diverticuli. There is no evidence of diverticulitis. Mayen catheter in urinary bladder. Uterus is surgically absent. IMPRESSION: Umbilical hernia. Splenomegaly. Right hydronephrosis secondary to obstructing calculus in the right mid ureter. Dictated by: Dictated on workstation # [id number] Dict: 12/04/19 1114 Trans: 12/04/19 1126 [facility] [id number] Interpreted by: MASOOD SOSA MD Electronically signed by: MASOOD SOSA MD 12/04/19 1126 Diagonstic Imaging: CT Plain Films/CT/US/NM/MRI: head Diagonstic Imaging: Xray Plain Films/CT/US/NM/MRI: chest Departure Impression Primary Impression: Altered mental status, unspecified Qualified Codes: R41.82 - Altered mental status, unspecified Additional Impressions: Acute urinary retention Hydronephrosis of right kidney Ureteral calculus, right Disposition: 02 XFER SHT-TRM HOSP Condition: Stable Transfer Transfer Reason: Patient preference (continuity of care) Time Spoke to Accepting Phy: 13:20 Transfer Progress Notes D/w Dr. Cortes and she accepted pt to [place] as she was familiar with pt and had her for similar presentation November 14 to [facility]. Transfer Facility: [facility] Method of Transfer: EMS Departure-Patient Inst. Referrals: ANTON FREEMAN MD (PCP/Family) Primary Care Physician GARETH DAMON MD Dec 04, 2019 10:24
[2019-12-04 10:25] LABS: CANNABINOID SCREEN, URINE POSITIVE (NEGATIVE); TRICYCLIC ANTIDEPRESSANTS SCRE POSITIVE (NEGATIVE)
[2019-12-04 10:26] LABS: AMPHETAMINE SCREEN, URINE NEGATIVE (NEGATIVE); BARBITURATE SCREEN URINE NEGATIVE (NEGATIVE); BENZODIAZEPINES SCREEN URINE NEGATIVE (NEGATIVE); COCAINE SCREEN URINE NEGATIVE (NEGATIVE); METHADONE STAT NEGATIVE (NEGATIVE); METHAMPHETAMINE SCREEN URINE S NEGATIVE (NEGATIVE); OPIATE SCREEN URINE POSITIVE (NEGATIVE); OXYCODONE STAT NEGATIVE (NEGATIVE); PROPOXYPHENE STAT NEGATIVE (NEGATIVE)
[2019-12-04 10:34] LABS: HEMATOCRIT 34 % (35-52); HEMOGLOBIN 10.3 G/DL (11.5-16.0); MEAN CORPUSCULAR HEMOGLOBIN 26 PG (25-34); MEAN CORPUSCULAR VOLUME 84 FL (80-99)
[2019-12-04 10:35] LABS: BASOPHILS % (AUTO) 0 % (0-10); EOSINOPHILS # (AUTO) 0.1 10^3/uL (0.0-0.3); EOSINOPHILS % (AUTO) 2 % (0-10); LYMPHOCYTES # (AUTO) 1.4 X 10^3 (1.0-4.0); LYMPHOCYTES % (AUTO) 20 % (12-44); MEAN CORPUSCULAR HGB CONC 31 G/DL (32-36); MEAN PLATELET VOLUME 10.7 FL (7.4-10.4); MONOCYTES # (AUTO) 0.6 X 10^3 (0.0-1.0); MONOCYTES % (AUTO) 8 % (0-12); NEUTROPHILS # (AUTO) 4.9 X 10^3 (1.8-7.8); NEUTROPHILS % (AUTO) 70 % (42-75); PLATELET COUNT 122 10^3/uL (130-400)
--- NOTE | 2019-12-04 10:35 | NUR ---
Call to daughter "Dahlia" (POA) [phone]; info taken by [facility] [employer] on scene: acting confused again, repeating self but not conversing, lack of eye-hand coordination again, pacing all evening but walking in abnormal gait leaning backward, hx long mental health issues and schizophrenia. Family in the home: Ron Mathur (Life Partner), Dgt- Dahlia, Dgt's boyfriend. Dgt talking rapidly on phone with voice escalating in volume. 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 Pt has not had any meds today. Pt was pacing in home in evening excessively which is abnormal and wanted to lean backward. They fought her wanting to take her nocturnal O2 off last night. Pt's dgt unaware if it is for sleep apnea but denies the CPAP maching described by this RN. Dgt states Dr Delgado keeps telling them probably alittle early dementia but after the last admission not able to get focused on whether there was more testing for this per Dr Delgado. Pt has an appt with Dr Casillas next Friday 12/08 and was to have labs and an ultrasound before that on 12/05. Updated family that will return call when the workup complete to give more answers and a plan. No medication list provided.
[2019-12-04 11:05] LABS: SODIUM 139 MMOL/L (135-145)
--- NOTE | 2019-12-04 11:05 | Diagnostic Imaging Report ---
HISTORY: Altered mental status COMPARISON: 11/15/2019 TECHNIQUE: Frontal view of the chest FINDINGS: Lung volumes are normal. No focal consolidation is seen. There is no pleural effusion or pneumothorax. The cardiac silhouette is normal in size. IMPRESSION: 1. No acute pulmonary abnormality. Dictated by: Dictated on workstation # [id number]
[2019-12-04 11:06] LABS: ALANINE AMINOTRANSFERASE 44 U/L (0-55); ALKALINE PHOSPHATASE 77 U/L (40-136); BILIRUBIN,TOTAL 2.1 MG/DL (0.1-1.0); BUN/CREATININE RATIO 29; CALCIUM 9.7 MG/DL (8.5-10.1); CARBON DIOXIDE 19 MMOL/L (21-32); CHLORIDE 102 MMOL/L (98-107); CREATININE SERUM 0.83 MG/DL (0.60-1.30); GFR ESTIMATED > 60; GLUCOSE 118 MG/DL (70-105); MAGNESIUM 2.1 MG/DL (1.6-2.4); TOTAL PROTEIN 7.1 GM/DL (6.4-8.2)
[2019-12-04 11:07] LABS: LIPASE 63 U/L (8-78)
--- NOTE | 2019-12-04 11:15 | Diagnostic Imaging Report ---
PROCEDURE: CT head without contrast. TECHNIQUE: Multiple contiguous axial images were obtained through the brain without the use of intravenous contrast. Auto Exposure Controls were utilized during the CT exam to meet ALARA standards for radiation dose reduction. INDICATION: Altered mental status The ventricles are normal in size, shape and position. There are no masses or hemorrhages. There are no extra-axial fluid collections. IMPRESSION: No acute abnormality seen in head. No change compared to 11/15/2019. Dictated by: Dictated on workstation # [id number]
--- NOTE | 2019-12-04 11:21 | Diagnostic Imaging Report ---
PROCEDURE: CT abdomen and pelvis without contrast. TECHNIQUE: Multiple contiguous axial images were obtained through the abdomen and pelvis without the use of intravenous contrast. Auto Exposure Controls were utilized during the CT exam to meet ALARA standards for radiation dose reduction. INDICATION: Altered mental status, oliguria Lung bases are clear. Liver appears normal. Gallbladder is surgically absent. Common duct is not dilated. Pancreas appears normal. The spleen is enlarged measuring 16 cm length. There is a 1 mm calculus in the right mid ureter causing mild hydronephrosis of the right kidney. Left kidney appears normal. There is calcific atherosclerosis of aorta but no aneurysm. Adrenal glands are normal. There is an umbilical hernia containing fat. The appendix is normal. Small bowel is unremarkable. There is a large amount stool in the colon. There are some scattered colonic diverticuli. There is no evidence of diverticulitis. Mayen catheter in urinary bladder. Uterus is surgically absent. IMPRESSION: Umbilical hernia. Splenomegaly. Right hydronephrosis secondary to obstructing calculus in the right mid ureter. Dictated by: Dictated on workstation # [id number]
--- NOTE | 2019-12-04 13:37 | NUR ---
Called [facility] to see if they can trasfer pt to [place], and they can't due to being short staffed. [facility] was called and asked if they can bring any off duty personnel in to transfer pt. They will get back to us.
--- NOTE | 2019-12-04 13:50 | NUR ---
Call to Dahlia bazzi to give update and plan of transfer to [facility]. Dahlia called earlier while this RN in an Emergency Transfer and she was told this RN would call when available and pt was still here in ER. Consent to transfer along with registration consent to bill and treat rec'd during this phone call.
--- NOTE | 2019-12-04 14:11 | NUR ---
[facility] accepted to transfer pt to [place]. ETA 30 minutes.
--- NOTE | 2019-12-04 14:15 | NUR ---
Call to Tory CASPER at [facility], report given. Advised that [facility] will be doing the transfer while [facility] of [facility] to [facility].
--- NOTE | 2019-12-04 15:20 | NUR ---
Mattie ([place] arrived at this time to transfer pt.
[2019-12-04 15:30] VITALS: BP 116/40
--- NOTE | 2019-12-04 15:30 | NUR ---
Patient departing at this time with [facility] from [place]. Pt answered the question of her name and date of at time of EMS introducing themselves.
== END 2019-12-04 15:30 | disposition short-term general hospital (02) ==
LOC: EDUNIT# 09:32 → ER FS 09:33
DX: N13.2 Hydronephrosis with renal and ureteral calculous obstruction (principal); R41.82 Altered mental status, unspecified; G40.909 Epilepsy, unspecified, not intractable, without status epilepticus; K21.9 Gastro-esophageal reflux disease without esophagitis; E11.9 Type 2 diabetes mellitus without complications; F41.9 Anxiety disorder, unspecified; D64.9 Anemia, unspecified; J45.909 Unspecified asthma, uncomplicated; Z87.891 Personal history of nicotine dependence; Z79.4 Long term (current) use of insulin; Z88.1 Allergy status to other antibiotic agents; Z88.2 Allergy status to sulfonamides; Z88.8 Allergy status to other drugs, medicaments and biological substances; Z96.0 Presence of urogenital implants
CPT/HCPCS: 36415; 51702; 70450; 71045; 74176; 80053; 80306; 81000; 83605; 83690; 83735; 83880; 84484; 85025; 87040; 93041; G0480; 80320; 93005

== ENCOUNTER → 2019-12-05 | Outpatient (CLI) | payer OTHER, MEDICAID | LOC: GIR 17:07 | PROVIDERS: ATTEND Internal Medicine | DX: Z01.89 Encounter for other specified special examinations (principal) | CPT/HCPCS: 84145 ==

== ENCOUNTER → 2019-12-19 | Outpatient (CLI) | payer MEDICAID ==
--- NOTE | 2019-12-19 15:21 | Diagnostic Imaging Report ---
PROCEDURE: MR imaging of the brain without contrast. TECHNIQUE: Multiplanar, multisequence MR imaging of the brain was performed without contrast. INDICATION: Memory loss. FINDINGS: There are no prior MRI brain examinations available for comparison. The CT head exam of 12/04/2019 failed to show any sign of an acute intracranial abnormality. On the diffusion series of this exam, there is no abnormal signal arising from the brain to suggest an area of acute ischemia. There is no mass, shift of the midline, or hemorrhage identified either. The FLAIR series is unremarkable for any signal abnormality in the periventricular white matter that would suggest demyelinating disease or encephalomalacia from microvascular ischemia. The ventricles are not abnormally dilated. The sella is not enlarged and the expected carotid flow voids are evident bilaterally. The orbits are symmetrical and within normal limits. The sinuses are generally clear. The seventh and eighth nerve complexes are unremarkable. IMPRESSION: 1. There is no evidence for an acute intracranial abnormality. In particular, there is no sign of an area of acute ischemia on the diffusion series. Dictated by: Dictated on workstation # [id number]
== END ==
LOC: RAD 14:45
PROVIDERS: ATTEND Family Medicine
DX: R41.3 Other amnesia (principal)
CPT/HCPCS: 70551

== ENCOUNTER → 2020-05-14 | Outpatient (CLI) | payer MEDICAID ==
[~2020-05-14] MED LIST changes: +CATHETER FLUSH 10 ML SYR IV PRN; +HOLD METFORMIN - RECEIVED CONTRAST 20 ML VIAL IV SCH; +IOHEXOL 350 MG/ML 100 ML (OMNIPAQUE 350) VIAL IV ONE; -LISI10TA2 PO; +LISI10TA25 PO; +NS 100 ML (IVPB) BAG IV ONE
[2020-05-14 08:58] LABS: BUN/CREATININE RATIO 25; CREATININE SERUM 0.63 MG/DL (0.60-1.30); GFR ESTIMATED > 60
--- NOTE | 2020-05-14 11:50 | Diagnostic Imaging Report ---
EXAMINATION: CT Neck and Chest with intravenous contrast. TECHNIQUE: Multiple contiguous axial images were obtained through the neck and chest after the uneventful administration of intravenous contrast. All CT scans use one or more of the following dose optimizing techniques: automated exposure control, MA and/or KvP adjustment based on a patient size and exam type, or iterative reconstruction. HISTORY: Hoarseness and vocal cords swelling COMPARISON: None available. FINDINGS: Neck CT: Scattered subcentimeter lymph nodes are seen in the neck. None are pathologically enlarged or abnormally enhancing. The muscles of the neck are normal. Vessels of the neck demonstrate normal course and caliber. Fascial planes are preserved and the deep spaces of the neck are normal. The visualized airway is widely patent. Vocal folds appear mildly thickened and are approximated with the glottis being closed. No asymmetric soft tissue is seen to indicate neoplasm. The base of the skull and the temporal bones are normal. Limited views of the brain including the cerebellum and brainstem are normal. The limited view of the [place] of [place] is unremarkable. The visualized portions of the orbits are normal. The spinal canal is normal in caliber. Intervertebral disk heights are normal. Neural foramina are normal. Chest CT: There is no edema or pneumonia. No pleural effusion. No pneumothorax. No suspicious nodules. There is mild left lower lobe atelectasis. There is no axillary or supraclavicular lymphadenopathy. There is no mediastinal lymphadenopathy. Heart size is normal. There are no coronary artery calcifications. No pericardial effusion. Aorta is normal in caliber. Limited views of the upper abdomen show cirrhotic liver and absent gallbladder. 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 Spleen is enlarged. There are no suspicious osseus lesions. IMPRESSION: 1. Swollen vocal folds with closed glottis and no CT evidence of a mass. 2. No metastatic disease seen in the chest, clear lungs. 3. Cirrhotic liver with splenomegaly and paraesophageal varices. Dictated by: Dictated on workstation # [id number]
== END ==
LOC: RAD FS 08:10
PROVIDERS: ATTEND Nurse Practitioner
DX: J38.4 Edema of larynx (principal); K74.60 Unspecified cirrhosis of liver; I85.10 Secondary esophageal varices without bleeding; R16.1 Splenomegaly, not elsewhere classified; R49.0 Dysphonia
CPT/HCPCS: 36415; 70491; 71260; 82565; 84520

== ENCOUNTER → 2020-08-10 | Outpatient (CLI) | payer MEDICAID ==
[~2020-08-10] MED LIST changes: -CATHETER FLUSH 10 ML SYR IV PRN; +EZET-59 PO; -EZET1TAB69 PO; -HOLD METFORMIN - RECEIVED CONTRAST 20 ML VIAL IV SCH; -IOHEXOL 350 MG/ML 100 ML (OMNIPAQUE 350) VIAL IV ONE; -NS 100 ML (IVPB) BAG IV ONE; -OMEP40CA27 PO; +OMEP40CA6 PO
--- NOTE | 2020-08-10 11:59 | Diagnostic Imaging Report ---
INDICATION: Fall with left knee pain AP, oblique and lateral views of left knee are obtained. No acute fracture or malalignment is identified. There is fluid present within the left suprapatellar bursa. No lytic or sclerotic focus is identified. IMPRESSION: Probable mild joint fluid without acute osseous abnormality identified. Dictated by: Dictated on workstation # [id number]
== END ==
LOC: RAD FS 10:45
PROVIDERS: ATTEND Family Medicine
DX: M25.562 Pain in left knee (principal); W19.XXXA Unspecified fall, initial encounter
CPT/HCPCS: 73562

== ENCOUNTER → 2020-08-18 | Outpatient (CLI) | payer MEDICAID ==
--- NOTE | 2020-08-18 13:02 | Diagnostic Imaging Report ---
INDICATION: Right hip pain. COMPARISON: CT abdomen and pelvis of 12/04/2019. TECHNIQUE: AP and frog-leg lateral views of right hip. FINDINGS: Severe osteoarthritis of the right hip is present characterized by nonuniform joint space narrowing and osteophyte formation. No fracture. No features osteonecrosis of femoral head. IMPRESSION: Severe osteoarthritis of the right hip. Dictated by: Dictated on workstation # [id number]
== END ==
LOC: RAD FS 10:04
PROVIDERS: ATTEND Family Medicine
DX: M16.11 Unilateral primary osteoarthritis, right hip (principal)
CPT/HCPCS: 73502

== ENCOUNTER → 2021-05-11 | Outpatient (CLI) | payer MEDICAID ==
[~2021-05-11] MED LIST changes: +CYCL10TA25 PO; -CYCL10TA9 PO; -POTA10TA36 PO; +POTA10TA37 PO
--- NOTE | 2021-05-11 17:40 | Diagnostic Imaging Report ---
Indication: Low back pain and radiculopathy. Time of Exam: 2:29 PM Three views of the lumbar spine were obtained. Curvature and alignment are normal. Vertebral body heights are well-maintained. No acute compression fracture is seen. Disc spaces are fairly well-preserved. There are degenerative changes at the L1-L2 level with disc space narrowing and marginal spurring. Atherosclerotic calcifications in the abdominal aorta are noted. IMPRESSION: Spondylosis. No acute bony abnormality is detected. Dictated by: Dictated on workstation # [id number]
== END ==
LOC: RAD FS 14:19
PROVIDERS: ATTEND Family Medicine
DX: M47.26 Other spondylosis with radiculopathy, lumbar region (principal)
CPT/HCPCS: 72100

== ENCOUNTER → 2021-05-18 | Outpatient (CLI) | payer MEDICAID ==
--- NOTE | 2021-05-18 19:07 | Diagnostic Imaging Report ---
CLINICAL INDICATIONS: Patient with low back pain and right hip pain. No history of previous lumbar surgery. No history of cancer. EXAM: MRI of the lumbar spine is performed without IV contrast. Sequences include sagittal T2, sagittal T1, sagittal T2 fat-sat, and axial T2. COMPARISON: X-ray of the lumbar spine dated 05/11/2021. CT scan of the abdomen and pelvis without contrast dated 12/04/2019. FINDINGS: There is no acute lumbar spine fracture. There are degenerative spurs involving the thoracolumbar region. There is facet arthropathy. The visualized portions of the distal thoracic spinal cord, conus medullaris, and cauda equina nerve roots are unremarkable. The conus medullaris tip is seen at the mid L2 vertebral body level. There is no significant paraspinal soft tissue abnormality. There is a 1.7 cm nodule involving the left adrenal gland which is indeterminate. This is not significantly changed in size compared to the prior CT scan. L1-L2: There is mild diffuse disk bulge. There is no significant central canal or neuroforaminal narrowing. L2-L3: There is a subtle disk bulge in the right foraminal region. There is mild right neuroforaminal narrowing. There is no significant central canal or left neuroforaminal narrowing. L3-L4: There is mild bilateral facet arthropathy. There is no significant central canal or neuroforaminal narrowing. There is mild disk bulging in the extraforaminal regions. L4-L5: There is a small central posterior disk extrusion/herniation. There is moderate bilateral facet arthropathy. There is mild right neuroforaminal narrowing and moderate left neuroforaminal narrowing. There is moderate central canal stenosis. L5-S1: There is a small broad posterior disk herniation with annular tear. There is moderate bilateral facet arthropathy. There is concern for encroachment upon the non-exited right S1 nerve root. There is no significant central canal stenosis. There is moderate right neuroforaminal narrowing and no significant left neuroforaminal narrowing. IMPRESSION: 1: There is multilevel lumbar spine degenerative disease, as described above. 2: There is a stable 1.7 cm left adrenal gland nodule which is indeterminate. Dictated by: Dictated on workstation # [id number]
== END ==
LOC: RAD 14:00
PROVIDERS: ATTEND Family Medicine
DX: M47.817 Spondylosis without myelopathy or radiculopathy, lumbosacral region (principal); E27.9 Disorder of adrenal gland, unspecified; M51.16 Intervertebral disc disorders with radiculopathy, lumbar region; M48.061 Spinal stenosis, lumbar region without neurogenic claudication; M47.26 Other spondylosis with radiculopathy, lumbar region; M51.27 Other intervertebral disc displacement, lumbosacral region; M48.07 Spinal stenosis, lumbosacral region; M46.05 Spinal enthesopathy, thoracolumbar region
CPT/HCPCS: 72148